=== PATIENT | female | born 2005 | race Caucasian/White ===

== ENCOUNTER 2023-01-21 22:31 | Emergency (ER) | payer OTHER ==
[~2023-01-21] VITALS: Ht 167.6 cm; Wt 95.2 kg
[2023-01-21 22:56] VITALS: BP 152/92
[2023-01-22] MEDS ORDERED: LIDO700A20 TOP (01:01)
== END 2023-01-22 01:10 | disposition home or self-care (01) ==
LOC: ER 22:31
DX: T14.8XXA Other injury of unspecified body region, initial encounter (principal); M79.632 Pain in left forearm; Z88.8 Allergy status to other drugs, medicaments and biological substances; X58.XXXA Exposure to other specified factors, initial encounter; Y92.89 Other specified places as the place of occurrence of the external cause; Y99.0 Civilian activity done for income or pay
CPT/HCPCS: 29125; 73110; 99283-25; L3917

== ENCOUNTER 2023-02-08 14:30 | Emergency (ER) | payer OTHER ==
[~2023-02-08] VITALS: Ht 167.6 cm; Wt 99.8 kg
[~2023-02-08 14:30] MED LIST: LIDO700A20 TOP
[2023-02-08 14:51] VITALS: BP 152/97
[2023-02-08 16:30] LABS: Influenza A, PCR NEGATIVE (NEGATIVE); Influenza B, PCR NEGATIVE (NEGATIVE); Resp Syncytial Virus, PCR NEGATIVE (NEGATIVE); SARS-Cov-2 (COVID-19) PCR, MMC NEGATIVE (NEGATIVE)
[2023-02-08] MEDS ORDERED: ONDA4ODT MM (18:02)
== END 2023-02-08 18:20 | disposition home or self-care (01) ==
LOC: ER 14:30
PROVIDERS: Physician Assistant
DX: B34.9 Viral infection, unspecified (principal); R11.2 Nausea with vomiting, unspecified; R06.02 Shortness of breath; Z20.822 Contact with and (suspected) exposure to COVID-19; Z88.8 Allergy status to other drugs, medicaments and biological substances
CPT/HCPCS: 0241U; 71046; 99285-25; A9270

== ENCOUNTER 2023-07-21 20:29 | Emergency (ER) | payer OTHER ==
[~2023-07-21] VITALS: Ht 167.6 cm; Wt 104.3 kg
[~2023-07-21 20:29] MED LIST changes: +ONDA4ODT MM
[2023-07-21 20:56] VITALS: BP 138/84
[2023-07-21] MEDS ORDERED: Amoxicillin500 MG PO (21:27)
== END 2023-07-21 21:38 | disposition home or self-care (01) ==
LOC: ER 20:29
DX: J02.0 Streptococcal pharyngitis (principal); B95.5 Unspecified streptococcus as the cause of diseases classified elsewhere
CPT/HCPCS: 87430; 99283; A9270

== ENCOUNTER → 2023-10-11 | Outpatient (CLI) | payer OTHER ==
[~2023-10-11] MED LIST changes: +Amoxicillin500 MG PO
== END ==
LOC: LAB SHORT 14:00 → LAB 14:00
DX: R30.0 Dysuria (principal)
CPT/HCPCS: 87086